=== PATIENT | male | born 1990 | race African-American/Black ===

== ENCOUNTER 2019-08-16 20:04 | Emergency (ER) | payer OTHER ==
[~2019-08-16] VITALS: Ht 162.6 cm; Wt 59.1 kg
[2019-08-16] MEDS ORDERED: ALBUTEROL SULFATE HFA 90 MCG/PUFF 8 GM INHALER IH ONE (22:15)
[2019-08-16 22:25] VITALS: BP 116/83
== END 2019-08-16 22:27 | disposition home or self-care (01) ==
LOC: EMS 20:07
DX: J40 Bronchitis, not specified as acute or chronic (principal); F17.210 Nicotine dependence, cigarettes, uncomplicated
CPT/HCPCS: 94640; J3535

== ENCOUNTER 2019-10-20 22:15 | Emergency (ER) | payer OTHER ==
[~2019-10-20] VITALS: Ht 162.6 cm; Wt 54.5 kg
[2019-10-21 00:59] LABS: INFLUENZA TYPE A NEGATIVE FOR TYPE A (NEGATIVE); INFLUENZA TYPE B NEGATIVE FOR TYPE B (NEGATIVE)
[2019-10-21 01:24] VITALS: BP 112/74
== END 2019-10-21 01:42 | disposition home or self-care (01) ==
LOC: EMS 22:15
DX: J40 Bronchitis, not specified as acute or chronic (principal); F12.90 Cannabis use, unspecified, uncomplicated; F17.210 Nicotine dependence, cigarettes, uncomplicated
CPT/HCPCS: 87804; 99406

== ENCOUNTER 2023-03-10 17:16 | Emergency (ER) | payer OTHER ==
[~2023-03-10] VITALS: Ht 162.6 cm; Wt 54.5 kg
[2023-03-10 17:24] VITALS: BP 125/86; PULSE 94; RESP 18; TEMP 98.6
== END 2023-03-10 21:53 | disposition left against medical advice (07) ==
LOC: EMS 17:17
DX: R51.9 Headache, unspecified (principal); Z53.21 Procedure and treatment not carried out due to patient leaving prior to being seen by health care provider
CPT/HCPCS: 99281; Z7502